=== PATIENT | male | born 1980 | race Caucasian/White ===

== ENCOUNTER 2020-08-30 09:35 | Outpatient (REF) | payer OTHER, SELFPAY ==
[2020-08-30 11:27] LABS: Estimated Average Glucose 108 mg/dL; Hemoglobin A1c % 5.4 %
[2020-08-30 13:03] LABS: Cholesterol 193 mg/dL; HDL Cholesterol 55 mg/dL; LDL Cholesterol Calculated 126 mg/dl; Triglycerides 63 mg/dL
[2020-08-30 13:23] LABS: TSH reflex Free T4 1.13 mIU/mL (0.32-4.0)
== END 2020-08-30 09:36 | disposition home or self-care (01) ==
LOC: HO.LAB 09:35
PROVIDERS: Visit Provider Internal Medicine Cardiovascular Disease
DX: Z00.00 Encounter for general adult medical examination without abnormal findings (principal)
CPT/HCPCS: 80061; 83036; 84443

== ENCOUNTER → 2021-06-18 09:30 | Outpatient (BNVA) | payer OTHER, SELFPAY | DX: Z20.822 Contact with and (suspected) exposure to COVID-19 (principal) | CPT/HCPCS: 36415; 87635 ==

== ENCOUNTER 2022-01-09 12:33 | Outpatient (REF) | payer OTHER, SELFPAY ==
[2022-01-09 13:03] LABS: COVID-19 Test Negative (Negative)
== END 2022-01-09 12:34 | disposition home or self-care (01) ==
LOC: HO.LAB 12:33
PROVIDERS: Visit Provider Nurse Practitioner Family
DX: Z20.822 Contact with and (suspected) exposure to COVID-19 (principal); J02.9 Acute pharyngitis, unspecified
CPT/HCPCS: 87635

== ENCOUNTER 2024-03-20 11:22 | Outpatient (REF) | payer OTHER, SELFPAY ==
[2024-03-20 12:50] LABS: Alanine Aminotransferase 30 U/L (0-40); Albumin Level 4.2 g/dL (3.5-5.0); Alkaline Phosphatase 59 U/L (39-117); Aspartate Amino Transferase 25 U/L (5-37); Bilirubin Direct 0.2 mg/dL (0.0-0.5); Bilirubin Total 0.5 mg/dL (0.0-1.0); Cholesterol 189 mg/dL (<200); HDL Cholesterol 55 mg/dL (>40); LDL Cholesterol Calculated 105 mg/dL (<100); Total Protein 7.3 g/dL (6.5-8.0); Triglycerides 147 mg/dL (<150)
[2024-03-20 12:54] LABS: Anion Gap 12 (12-20); Blood Urea Nitrogen 15 mg/dL (9-16); Calcium 9.5 mg/dL (8.4-10.2); Carbon Dioxide 29 mmol/L (22-29); Chloride 105 mmol/L (96-108); Estimated Glomerular Filt Rate > 60; Glucose Fasting 81 mg/dL (60-99); Magnesium 2.1 mg/dL (1.6-2.6); Potassium 4.3 mmol/L (3.3-5.1); Sodium 142 mmol/L (135-145)
[2024-03-20 13:07] LABS: TSH reflex Free T4 2.12 uIU/mL (0.32-4.0)
[2024-03-20 13:19] LABS: Erythrocyte Sedimentation Rate 3 MM/HR (0-15)
[2024-03-24 15:23] LABS: Vitamin D 25-OH, D2 <4 ng/mL; Vitamin D 25-OH, D3 22 ng/mL; Vitamin D 25-OH, Total 22 ng/mL (30-100)
== END 2024-03-20 11:23 | disposition home or self-care (01) ==
LOC: HO.LAB 11:22
PROVIDERS: Absent Provider Internal Medicine Cardiovascular Disease; Visit Provider Psychiatry & Neurology Neurology
DX: Z00.00 Encounter for general adult medical examination without abnormal findings (principal); G56.20 Lesion of ulnar nerve, unspecified upper limb
CPT/HCPCS: 36415; 80048; 80061; 80076; 82306; 82550; 83735; 84100; 84443; 85652

== ENCOUNTER 2024-07-10 08:41 | Outpatient (REF) | payer OTHER, SELFPAY ==
--- NOTE | ~2024-07-10 | XR_ITS ---
EXAMINATION: XR ANKLE, RIGHT CLINICAL INFORMATION: Pain in right ankle, injury. Lateral pain. COMPARISON: None available. TECHNIQUE: AP, lateral, and mortise views of the right ankle. FINDINGS: There is no fracture, dislocation, or suspicious focal bony abnormality. The ankle mortise is intact. The talar dome is preserved. There is normal alignment. There is no evidence of joint effusion. Soft tissues appear normal. XR/XR ankle RT min 3V IMPRESSION: Normal right ankle. Electronically signed by: Anand Phipps MD 07/17/2024 12:16 PM EDT
== END 2024-07-10 08:42 | disposition home or self-care (01) ==
LOC: HO.XRAY 08:41
PROVIDERS: Visit Provider Internal Medicine Cardiovascular Disease
DX: M25.571 Pain in right ankle and joints of right foot (principal)
CPT/HCPCS: 73610

== ENCOUNTER → 2024-07-10 08:44 | Outpatient (BNV) | payer OTHER, SELFPAY | PROVIDERS: Visit Provider Radiology Diagnostic Radiology | DX: M25.571 Pain in right ankle and joints of right foot (principal) | CPT/HCPCS: 73610 ==